=== PATIENT | male | born 1950 | race Caucasian/White ===

== ENCOUNTER 2020-01-01 03:39 | Emergency (ER) | payer MEDICARE ==
[~2020-01-01] VITALS: Ht 182.9 cm; Wt 90.7 kg
== END 2020-01-01 08:59 ==
LOC: ER 03:39
DX: I46.9 Cardiac arrest, cause unspecified (principal); I25.810 Atherosclerosis of coronary artery bypass graft(s) without angina pectoris; I25.2 Old myocardial infarction; I10 Essential (primary) hypertension
CPT/HCPCS: 92950; 96374-59; 99285-25